=== PATIENT | female | born 1955 | race Hispanic/Latino ===

== ENCOUNTER 2021-04-11 09:00 | Observation (INO) | payer MEDICARE ==
[~2021-04-11] VITALS: Ht 152.4 cm; Wt 82.2 kg
[2021-04-11 11:08] LABS: BASOPHILS % (AUTO) 0.9 % (0.0-5.0); EOSINOPHILS % (AUTO) 2.2 % (0.0-8.0); HEMATOCRIT 38.8 % (36-48); LYMPHOCYTES % (AUTO) 43.5 % (21.0-51.0); MEAN CORPUSCULAR HEMOGLOBIN 30.9 pg (27.0-33.0); MEAN CORPUSCULAR HGB CONC 33.2 g/dL (32.0-36.0); MONOCYTES % (AUTO) 8.4 % (3.0-13.0); NEUTROPHILS % (AUTO) 44.5 % (40.0-77.0); PLATELET COUNT (AUTO) 237 K/uL (130-400); RED BLOOD CELL COUNT(AUTO) 4.17 MIL/uL (4.00-5.50); RED CELL DISTRIBUTION WIDTH 13.1 % (11.0-15.5); WHITE BLOOD COUNT (AUTO) 5.9 K/uL (4.8-10.8)
[2021-04-11 11:10] LABS: APPEARANCE,URINE Clear (CLEAR); BILIRUBIN,URINE Negative (NEGATIVE); COLOR,URINE Yellow (YELLOW); GLUCOSE, URINE (UA) Negative (NEGATIVE); KETONES,URINE Negative (NEGATIVE); LEUKOCYTE ESTERASE ,URINE Moderate (NEGATIVE); NITRATE,URINE Positive (NEGATIVE); OCCULT BLOOD,URINE Negative (NEGATIVE); PH,URINE 5.5 (5.0-8.0); PROTEIN,URINE Negative (NEGATIVE)
[2021-04-11 11:17] LABS: POTASSIUM 4.3 mmol/L (3.5-5.1)
[2021-04-11 11:49] LABS: BACTERIA,URINE Many /HPF (None Seen)
[2021-04-11 11:50] LABS: RBC,URINE 0-1 /HPF (0-1)
[2021-04-11 12:22] LABS: INR 1.07 (0.85-1.15); PROTHROMBIN TIME 11.6 SEC (9.6-11.6)
[2021-04-15] MEDS ORDERED: LOSA100T58 PO (15:35)
[2021-04-15] MEDS ORDERED: ERGO500093 PO (15:35)
[2021-04-15] MEDS ORDERED: FENO145T26 PO (15:35)
[2021-04-15] MEDS ORDERED: METO-391 PO (15:35)
[2021-04-15] MEDS ORDERED: LEVO25CA4 PO (15:35)
[2021-04-15] MEDS ORDERED: OMEP20TA25 PO (15:35)
[2021-04-16] VITALS (20 sets, daily range): BP systolic 129–177; BP diastolic 62–85
[2021-04-16] MEDS ORDERED: LACTATED RINGERS 1000ML 1,000 ML IV ONE (09:30)
[2021-04-16] MEDS: CEFAZOLIN SODIUM 1 GM VIAL IVP ONE ×2 (10:14→12:50)
[2021-04-16] MEDS: CEFAZOLIN SODIUM 1 GM VIAL ONE ×2 (10:14→14:28)
[2021-04-16] MEDS ORDERED: 0.9%NACL 1000ML 1,000 ML IV ONE (10:17)
[2021-04-16] MEDS ORDERED: CEFAZOLIN SODIUM 1 GM VIAL ONE ×3 (11:36→12:59)
[2021-04-16] MEDS ORDERED: TRANEXAMIC ACID 1000MG/10ML ONE ×2 (11:36→15:10)
[2021-04-16] MEDS ORDERED: GLYCOPYRROLATE 1 MG/5 ML SYRINGE ONE (12:09)
[2021-04-16] MEDS ORDERED: ONDANSETRON 4MG INJ ONE (12:09)
[2021-04-16] MEDS ORDERED: DEXAMETHASONE SOD PHOSPHATE 10MG/ML 1ML VIAL ONE (12:09)
[2021-04-16] MEDS ORDERED: FENTANYL CITRATE PF 50 MCG/1 ML 2ML VIAL ONE ×2 (12:09→14:11)
[2021-04-16] MEDS ORDERED: SUCCINYLCHOLINE CHLORIDE 20 MG/ML 10 ML VIAL ONE (12:09)
[2021-04-16] MEDS ORDERED: LIDOCAINE PF 100MG/5ML (2%) SYRINGE 5ML ONE (12:09)
[2021-04-16] MEDS ORDERED: PROPOFOL 10 MG/ML 20ML VIAL IV ONE (12:09)
[2021-04-16] MEDS ORDERED: ROCURONIUM 10MG/1ML SYR 10 MG/ML ML ONE ×2 (12:10→13:24)
[2021-04-16] MEDS ORDERED: NEOSTIGMINE 5MG/5ML SYR IV ONE (12:10)
[2021-04-16] MEDS ORDERED: MIDAZOLAM HCL 1 MG/ML 2ML VIAL ONE (12:10)
[2021-04-16] MEDS ORDERED: MEPERIDINE-PF 25 MG/ML SYG ONE ×2 (12:11→15:23)
[2021-04-16] MEDS ORDERED: ROPIVACAINE 0.5% 5MG/ML 30ML IJ ONE (12:14)
[2021-04-16] MEDS ORDERED: PHENYLEPHRINE HCL 10 MG/ML 1ML VIAL IV ONE (12:54)
[2021-04-16] MEDS ORDERED: LIDOCAINE HCL-MPF 1% 2ML VIAL IV PRN (14:45)
[2021-04-16] MEDS ORDERED: ONDANSETRON 4MG INJ IVP PRN (14:45)
[2021-04-16] MEDS: ACETAMINOPHEN 500 MG TABLET PO SCH ×2 (14:45→20:06)
[2021-04-16] MEDS ORDERED: DiphenhydrAMINE HCL 50 MG/ML VIAL IVP PRN (14:45)
[2021-04-16] MEDS ORDERED: TRAMADOL HCL 50 MG TABLET PO PRN (14:45)
[2021-04-16] MEDS ORDERED: POTASSIUM CHLORIDE 20MEQ/100ML 100 ML IV PRN (14:45)
[2021-04-16] MEDS ORDERED: KCL 20 MEQ ERTAB PO PRN (14:45)
[2021-04-16] MEDS ORDERED: POTASSIUM CHLORIDE 10% ELIXIR 20 MEQ/15 ML UDCUP PO PRN (14:45)
[2021-04-16] MEDS ORDERED: OXYCODONE HCL 5 MG TAB PO PRN (14:45)
[2021-04-16] MEDS ORDERED: TEMAZEPAM 15 MG CAPSULE PO PRN (14:45)
[2021-04-16] MEDS ORDERED: CALCIUM CARB 500MG PO PRN (14:45)
[2021-04-16] MEDS ORDERED: FERROUS FUMARATE 324 MG TABLET PO PRN (14:45)
[2021-04-16] MEDS: INSULIN HUMULIN R 100 UNIT/ML 3ML SQ SCH ×2 (16:30→21:00)
[2021-04-16] MEDS: 0.9%NACL 1000ML 1,000 ML IV SCH (17:24)
[2021-04-16] MEDS: KETOROLAC 15MG/ML VIAL (15MG/ML) IV PRN (17:24)
[2021-04-16] MEDS: CELECOXIB 200 MG CAP PO SCH (20:05)
[2021-04-16] MEDS: ASPIRIN 81MG CHEW TAB PO SCH (20:05)
[2021-04-16] MEDS: PREGABALIN 25 MG CAP PO SCH (20:05)
[2021-04-16] MEDS: CEFAZOLIN SODIUM 1 GM VIAL IVP SCH (20:07)
[2021-04-16] MEDS: METOPROLOL SUCCINATE 50 MG TAB.SR.24H PO SCH (20:12)
[2021-04-17] VITALS: BP 164/79
[2021-04-17] MEDS: 0.9%NACL 1000ML 1,000 ML IV SCH ×2 (00:08→09:24)
[2021-04-17] MEDS: CEFAZOLIN SODIUM 1 GM VIAL IVP SCH (02:50)
[2021-04-17 04:40] VITALS: BP 137/61
[2021-04-17 05:14] LABS: MEAN CORPUSCULAR HEMOGLOBIN 30.8 pg (27.0-33.0); MEAN CORPUSCULAR HGB CONC 32.6 g/dL (32.0-36.0); MEAN CORPUSCULAR VOLUME 94.4 fL (79-99); RED BLOOD CELL COUNT(AUTO) 3.6 MIL/uL (4.00-5.50); RED CELL DISTRIBUTION WIDTH 13.1 % (11.0-15.5); WHITE BLOOD COUNT (AUTO) 10.1 K/uL (4.8-10.8)
[2021-04-17 05:26] LABS: CREATININE 1.1 mg/dL (0.5-1.5); POTASSIUM 4.2 mmol/L (3.5-5.1)
[2021-04-17] MEDS: INSULIN HUMULIN R 100 UNIT/ML 3ML SQ SCH ×4 (06:06→21:00)
[2021-04-17] MEDS: LEVOTHYROXINE 25 MCG TABLET PO SCH (06:18)
[2021-04-17] MEDS: ACETAMINOPHEN 500 MG TABLET PO SCH ×3 (06:18→19:45)
[2021-04-17 08:05] VITALS: BP 150/70
[2021-04-17] MEDS ORDERED: LEVOFLOXACIN 500 MG TABLET PO SCH (09:00)
[2021-04-17] MEDS: PREGABALIN 25 MG CAP PO SCH ×2 (09:22→19:44)
[2021-04-17] MEDS: FENOFIBRATE NANOCRYSTALLIZED 145 MG TAB PO SCH (09:22)
[2021-04-17] MEDS: METOPROLOL SUCCINATE 50 MG TAB.SR.24H PO SCH ×2 (09:23→19:44)
[2021-04-17] MEDS: CELECOXIB 200 MG CAP PO SCH ×2 (09:23→19:44)
[2021-04-17] MEDS: POLYETHYLENE GLYCOL 3350 17 GM POWD.PACK PO SCH (09:23)
[2021-04-17] MEDS: ASPIRIN 81MG CHEW TAB PO SCH ×2 (09:23→19:44)
[2021-04-17] MEDS: LOSARTAN 100 MG TABLET PO SCH (09:23)
[2021-04-17] MEDS: LEVOFLOXACIN 500 MG TABLET PO SCH (09:23)
[2021-04-17] MEDS: KETOROLAC 15MG/ML VIAL (15MG/ML) IV PRN (09:25)
[2021-04-17] MEDS: PANTOPRAZOLE 40 MG TAB DR PO SCH (11:53)
[2021-04-17 12:00] VITALS: BP 134/55
[2021-04-17] MEDS: OXYCODONE HCL 5 MG TAB PO PRN (14:12)
[2021-04-17 16:00] VITALS: BP 130/53
[2021-04-17 19:55] VITALS: BP 139/63
[2021-04-18 00:10] VITALS: BP 128/49
[2021-04-18 04:29] VITALS: BP 139/57
[2021-04-18] MEDS: LEVOTHYROXINE 25 MCG TABLET PO SCH (05:58)
[2021-04-18] MEDS: ACETAMINOPHEN 500 MG TABLET PO SCH ×2 (05:59→14:45)
[2021-04-18] MEDS: INSULIN HUMULIN R 100 UNIT/ML 3ML SQ SCH ×3 (06:09→16:30)
[2021-04-18] MEDS: ASPIRIN 81MG CHEW TAB PO SCH (07:43)
[2021-04-18] MEDS: OXYCODONE HCL 5 MG TAB PO PRN (07:43)
[2021-04-18] MEDS: PREGABALIN 25 MG CAP PO SCH (07:43)
[2021-04-18] MEDS: METOPROLOL SUCCINATE 50 MG TAB.SR.24H PO SCH (07:43)
[2021-04-18] MEDS: FENOFIBRATE NANOCRYSTALLIZED 145 MG TAB PO SCH (07:43)
[2021-04-18] MEDS: LEVOFLOXACIN 500 MG TABLET PO SCH (07:43)
[2021-04-18] MEDS: LOSARTAN 100 MG TABLET PO SCH (07:43)
[2021-04-18] MEDS: POLYETHYLENE GLYCOL 3350 17 GM POWD.PACK PO SCH (07:44)
[2021-04-18] MEDS: CELECOXIB 200 MG CAP PO SCH (07:44)
[2021-04-18 08:18] VITALS: BP 138/60
[2021-04-18] MEDS ORDERED: LEVOFLOXACIN 500 MG TABLET PO SCH (09:00)
[2021-04-18 11:26] VITALS: BP 154/59
[2021-04-18] MEDS: PANTOPRAZOLE 40 MG TAB DR PO SCH (15:32)
[2021-04-18 17:22] VITALS: BP 152/62
[2021-04-18] MEDS ORDERED: ASPI-1005 PO (17:51)
[2021-04-18] MEDS ORDERED: LEVO500T89 PO (17:51)
[2021-04-18] MEDS ORDERED: HYDR-4060 PO ×2 (17:51→18:25)
[2021-04-19] MEDS ORDERED: BISACODYL 10 MG SUPP.RECT RC PRN (14:45)
[2021-04-23] MEDS ORDERED: ERGOCALCIFEROL (VITAMIN D2) 50,000 UNIT CAPSULE PO SCH (09:00)
== END 2021-04-18 18:46 | disposition home health service (06) ==
LOC: EDSTATUS 09:00 → DAHIP 04-16 09:20 → 4BH 04-16 16:42
PROVIDERS: ADMIT Orthopaedic Surgery; ATTEND Orthopaedic Surgery
DX: M17.12 Unilateral primary osteoarthritis, left knee (principal); I10 Essential (primary) hypertension; E03.9 Hypothyroidism, unspecified; N39.0 Urinary tract infection, site not specified; B96.1 Klebsiella pneumoniae [K. pneumoniae] as the cause of diseases classified elsewhere; Z82.49 Family history of ischemic heart disease and other diseases of the circulatory system; Z83.3 Family history of diabetes mellitus
CPT/HCPCS: 27447; 36415 ×2; 80048 ×2; 81001; 82948 ×9; 85025; 85027; 85610; 87077; 87088; 87186; 87635; 87641; 88305; 88311; 96361 ×2; 96374; 96375; 96376; 97039 ×4; 97116 ×4; 97161; 97530 ×4; A4215; A4221; A4222; A4223 ×2; A4649 ×3; A4663; A4930; A5120; A9272; C1776; G0378 ×52; G8978; G8979; G8980; G8981; G8982; G8983; J0330; J0690 ×6; J1100; J1885 ×2; J2001; J2175 ×2; J2250; J2370; J2405; J2704; J2710; J2795; J3010 ×2; J3490 ×3; J7030; J7120 ×2

== ENCOUNTER → 2023-08-12 | Outpatient (CLI) | payer MEDICARE ==
[~2023-08-12] MED LIST: ASPI-1005 PO; ERGO500093 PO; FENO145T26 PO; HYDR-4060 PO; LEVO-70 PO; LEVO25CA4 PO; LOSA100T59 PO; METO-391 PO; OMEP20TA20 PO
[2023-08-12 16:20] LABS: CREATININE 0.9 mg/dL (0.5-1.5); POTASSIUM 4.3 mmol/L (3.5-5.1)
== END | disposition home or self-care (01) ==
LOC: LAB 15:41
PROVIDERS: ATTEND Internal Medicine Cardiovascular Disease
DX: I10 Essential (primary) hypertension (principal)
CPT/HCPCS: 36415; 80048

== ENCOUNTER → 2023-10-07 | Outpatient (CLI) | payer MEDICARE | END | disposition home or self-care (01) | LOC: SHCH 11:16 | PROVIDERS: ATTEND Internal Medicine Cardiovascular Disease | DX: I10 Essential (primary) hypertension (principal) | CPT/HCPCS: 93306 ==

== ENCOUNTER → 2024-11-08 | Outpatient (CLI) | payer MEDICARE ==
--- NOTE | 2024-11-08 14:05 | HMCIMG ---
CHEST 2VWS REASON: HTN COMPARISON: None FINDINGS: Two views of the chest were obtained. Lungs are clear. Heart size is normal. There is no pulmonary vascular congestion. Mediastinum and bony thorax appear unremarkable. IMPRESSION: Normal two view chest x-ray.
== END | disposition home or self-care (01) ==
LOC: RAH 11:25
PROVIDERS: ATTEND Family Medicine
DX: Z01.818 Encounter for other preprocedural examination (principal); I10 Essential (primary) hypertension
CPT/HCPCS: 71046

== ENCOUNTER → 2024-11-21 | Outpatient (CLI) | payer MEDICARE ==
[~2024-11-21] MED LIST changes: +AEC81 PO; +AMLO-257 PO; +LABE100T7 PO; +NITR0.4T50 SL; +SPIR25TA6 PO; +TELM80TA10 PO
[2024-11-21] MEDS: REGADENOSON 0.4 MG/5 ML PF SYG IVP ONE (11:24)
--- NOTE | 2024-11-22 09:30 | HMCSR ---
APPROVED REPORT Height: 5 ft 0in Weight: 177 lbs TEST INDICATIONS Hypertension/HDD The imaging protocol used to acquire images was Rest Tc-99m/stress Tc-99m 1 day Consent: The procedure was explained and understood by the patient. Informerd consent was witnessed Gaby ROMAN RN First, low dose rest was performed then high dose stress. RESTING DATA: The resting ekg shows: NSR Rest SPECT myocardial perfusion imaging was performed in supine position 83 minutes following the int ravenous injection of 13.0 mCi of Tc-99 Sestamibi. Time of rest injection: 09:22: Date: 11/21/2024 Time of rest imagin:45: Date: 11/21/2024 PHARMACOLOGIC STRESS: Pharmacologic stress test was performed by injecting regadenoson 0.4 mg IV push followed by the intra venous injection of 30.0 mCi of Tc-99 Sestamibi. Time of stress injection: 11:14: Date: 11/21/2024 Time of stress imagin:34: Date: 11/21/2024 Heart Rate at time of stress injection: 67 bpm. Gated Stress SPECT was performed 80 minutes after stress injection. The images were gated to evaluate regional wall motion and calculate left ventricular ejection fracti on. STRESS DETAILS Reason for Termination: Infusion complete Stress Symptoms: Dyspnea Max HR Achieved: 96 bpm % of APMHR Achieved: 65 Max Blood Pressure: 174/74 mmHg Stress ECG: NSR Study quality was excellent. Lung uptake was Normal. Artifact: No artifact LEFT VENTRICLE Size: The left ventricular size is normal. Systolic Function:The left ventricular systolic function is normal. Wall Motion: No regional wall motion abnormalities noted. The left ventricular ejection fraction was calculated to be 70%.TID = 1.00. LV PERFUSION The rest and stress images show normal perfusion. RV Size/Shape Normal RV Conclusion Normal cardiolyte, low risk for ischemic events.
== END | disposition home or self-care (01) ==
LOC: SHCH 08:41
PROVIDERS: ATTEND Internal Medicine Cardiovascular Disease
DX: R06.00 Dyspnea, unspecified (principal); I10 Essential (primary) hypertension; Z91.89 Other specified personal risk factors, not elsewhere classified; Z79.899 Other long term (current) drug therapy
CPT/HCPCS: 78452; 93017; J2785; A9500 ×2

== ENCOUNTER 2024-11-28 11:43 | Observation (INO) | payer MEDICARE ==
[2024-11-23 14:26] LABS: BASOPHILS # (AUTO) 0.04 K/uL (0.00-0.20); BASOPHILS % (AUTO) 0.7 % (0.0-5.0); EOSINOPHILS # (AUTO) 0.18 K/uL (0.00-0.70); HEMATOCRIT 33.8 % (36-48); IMMATURE GRANULOCYTE ABSOLUTE 0.03 K/uL (0-1); LYMPHOCYTES # (AUTO) 2.3 K/uL (1.0-4.8); LYMPHOCYTES % (AUTO) 37.7 % (21.0-51.0); MEAN CORPUSCULAR HEMOGLOBIN 31.4 pg (27.0-33.0); MEAN CORPUSCULAR HGB CONC 33.7 g/dL (32.0-36.0); MEAN CORPUSCULAR VOLUME 93.1 fL (79-99); MONOCYTES # (AUTO) 0.6 K/uL (0.1-1.0); MONOCYTES % (AUTO) 9.7 % (3.0-13.0); NEUTROPHILS # (AUTO) 2.9 K/uL (1.8-7.7); NEUTROPHILS % (AUTO) 48.4 % (40.0-77.0); PLATELET COUNT (AUTO) 249 K/uL (130-400); RED BLOOD CELL COUNT(AUTO) 3.63 MIL/uL (4.00-5.50); RED CELL DISTRIBUTION WIDTH 13.2 % (11.0-15.5); WHITE BLOOD COUNT (AUTO) 6.1 K/uL (4.8-10.8)
[2024-11-23 14:29] LABS: APPEARANCE,URINE CLEAR (CLEAR); BILIRUBIN,URINE NEGATIVE (NEGATIVE); COLOR,URINE COLORLESS (YELLOW); GLUCOSE, URINE (UA) NEGATIVE (NEGATIVE); KETONES,URINE NEGATIVE (NEGATIVE); LEUKOCYTE ESTERASE ,URINE 250 Leu/uL (NEGATIVE); NITRATE,URINE NEGATIVE (NEGATIVE); OCCULT BLOOD,URINE NEGATIVE (NEGATIVE); PH,URINE 6.5 (5.0-8.0); PROTEIN,URINE NEGATIVE (NEGATIVE); UROBILINOGEN,URINE 0.2 mg/dL (0.2-1.0)
[2024-11-23 14:30] LABS: ADD UA MICROSCOPIC YES
[2024-11-23 14:32] LABS: BACTERIA,URINE RARE /HPF (None Seen); MUCUS,URINE RARE LPF (None Seen); RBC,URINE 0-1 /HPF (0-1)
[2024-11-23 14:59] VITALS: BP 143/71; PULSE 79; RESP 18; TEMP 97.9
--- NOTE | 2024-11-27 09:49 | NUR ---
RE: LABS REPORTED URINE CX/SENSITIVITIES TO DR EDMOND, NO NEW ORDERS RECEIVED.
[2024-11-28] VITALS (23 sets, daily range): BP systolic 109–159; BP diastolic 56–78; PULSE 70–89; RESP 12–19; TEMP 97–98
[~2024-11-28] VITALS: Ht 152.4 cm; Wt 79.4 kg
[~2024-11-28 11:43] MED LIST changes: -AEC81 PO
[2024-11-28] MEDS ORDERED: TRANEXAMIC ACID 1000MG/10ML ONE (12:55)
[2024-11-28] MEDS ORDERED: VANCOMYCIN 500MG+NS 100ML 100 ML IV ONE (12:56)
[2024-11-28] MEDS ORDERED: GLYCOPYRROLATE 0.2 MG/ML 5 ML VIAL ONE (12:58)
[2024-11-28] MEDS ORDERED: proPOFol 10 MG/ML 20ML VIAL IV ONE (12:58)
[2024-11-28] MEDS ORDERED: LIDOCAINE PF 100MG/5ML (2%) SYRINGE 5ML ONE (12:58)
[2024-11-28] MEDS ORDERED: dexaMETHasone SOD PHOSPHATE 10MG/ML 1ML VIAL ONE (12:58)
[2024-11-28] MEDS ORDERED: ondanSETRON 4MG INJ ONE (12:58)
[2024-11-28] MEDS ORDERED: SUCCINYLCHOLINE CHLORIDE 20 MG/ML 10 ML VIAL ONE (12:58)
[2024-11-28] MEDS ORDERED: NEOSTIGMINE METHYLSULFATE 1MG/ML IV ONE (12:58)
[2024-11-28] MEDS ORDERED: rocuRONium bROMide 10MG/1ML 5ML VL ONE (12:59)
[2024-11-28] MEDS ORDERED: FENTanyl CITRate PF 50 MCG/1 ML 2ML VIAL ONE ×3 (13:00→16:24)
[2024-11-28] MEDS ORDERED: MIDAZOLAM HCL 1 MG/ML 2ML VIAL ONE (13:00)
[2024-11-28] MEDS: ceFAZolin SODIUM 2 GM VIAL ONE (13:07)
[2024-11-28] MEDS: 0.9%NACL 1000ML 1,000 ML IV ONE (13:07)
[2024-11-28] MEDS: ceFAZolin SODIUM 1 GM VIAL ONE (15:25)
[2024-11-28] MEDS: VANCOMYCIN 500MG VIAL IJ ONE (15:25)
[2024-11-28] MEDS ORDERED: PoTASSium chloRIDE 20MEQ ER 20 MEQ ERTAB PO PRN (17:00)
[2024-11-28] MEDS ORDERED: FERROUS FUMARATE 324 MG TABLET PO PRN (17:00)
[2024-11-28] MEDS ORDERED: CALCIUM CARB 500MG PO PRN (17:00)
[2024-11-28] MEDS ORDERED: ondanSETRON 4MG INJ IVP PRN (17:00)
[2024-11-28] MEDS ORDERED: PoTASSium chl 10% ELIXIR 20MEQ 20 MEQ/15 ML UDCUP PO PRN (17:00)
[2024-11-28] MEDS ORDERED: PoTASSium chloRIDE 20MEQ/100ML 100 ML IV PRN (17:00)
[2024-11-28] MEDS ORDERED: DiphenhydrAMINE HCL 50 MG/ML VIAL IVP PRN (17:00)
[2024-11-28] MEDS ORDERED: HYDROcodone/APAP 5/325 1 TAB TABLET PO PRN (17:00)
[2024-11-28] MEDS ORDERED: TEMAZepam 15 MG CAPSULE PO PRN (17:00)
--- NOTE | 2024-11-28 17:06 | OP ---
Operative Note: DATE OF PROCEDURE: 11/28/24 SURGEON: TAMAR EDMOND MD SUPPLY CHAIN SYSTEMS MANAGER: [Matilde Samuel CFA] ANESTHESIA: [General anesthesia plus regional block] ANESTHESIOLOGIST/ALLEY WORKER: [Shon nguyen CRNA] PREOPERATIVE DIAGNOSIS: [Right knee osteoarthritis] POSTOPERATIVE DIAGNOSIS: [Same] IMPLANTS: [Biomet vanguard. Femur size 62.5 right PS. Tibia size 67 fixed cruciate. Tibial liner size 10 by 63/67 PS patella size 31 by eight, asymmetric] PROCEDURE: [Knee arthroplasty] ESTIMATED BLOOD LOSS: [150 mL] INDICATIONS: [Patient is a 69-year-old female with history of chronic osteoarthritis that has been treated conservatively in the longer responded to treatment. The patient was admitted for a right total knee arthroplasty. Procedure understood, risks, benefits and possible complications and she agreed to sign the consent form.] DESCRIPTION OF PROCEDURE: [After adequate general anesthesia was achieved and regional block obtained the right lower extremity was prepped and draped in the usual manner previous placement of the tourniquet in the proximal thigh. The extremity was then elevated and exsanguinated with an Esmarch bandage and the tourniquet inflated to 250 mmHg the Esmarch band been then removed. With the knee in flexion a longitudinal incision was then made in the anterior aspect through the skin followed by dissection of the subcutaneous tissue. A bone infusion needle was then inserted just medial to the tibial tuberosity that we proceeded to inject a solution consisting of 50 mL normal saline with 500 mg of vancomycin. The bone needle was then removed. A paramedian approach was then made with the Bovie cautery cutting through the quadriceps tendon, medial patellar retinaculum and patellar tendon retinaculum. The retropatellar tendon fat was then excised and the soft tissue elements of the tibia were elevated subperiosteally and retractors were applied medially and laterally . The anterior and posterior cruciate ligaments were resected. With the use of a drill a starting hole was made in the distal femur entering the intramedullary canal and then after removal of the drill an intramedullary guide was inserted with a 5 degree valgus block that touched the distal femur and to this the distal femoral cutting guide was then applied anteriorly and was secured to the distal femur with the use of pins. The intramedullary guide was then removed and with the use of the oscillating saw we proceeded to resect the distal femur removing the fragments and the guide. The femoral sizer was then applied distally and drill holes were made removing the sizer and the 4-in-1 cutting block was then inserted and the anterior, posterior and chamfer cuts were made removing the fragments and the block. The posterior cruciate ligament retractor was then inserted posterior to the tibia and this was brought forward proceeding then to apply the external tibial alignment guide and secured the proximal cutting guide to the tibia with the use of pins. With the use of the oscillating saw the proximal cut to the tibia tibia was made. The bone fragment was removed and the trial tibia plate was chosen. At this point the menisci were removed sharply and with the use of the curved osteotome the posterior osteophytes of the femur were removed. The PS cutting guide was then inserted and the intercondylar cut was made removing the fragment and the guide. The trial components were then inserted at the femur and tibia with a trial tibial liner bringing the knee into extension noticing that the patient had a very stable knee in flexion, extension and with valgus and varus stress. The knee was maintained in extension and the patella was then addressed proceeding to measure its thickness and then with the use of the oscillating saw we removed eight mm from the articular surface and restored the height with application of a trial component after 3 peg holes were made. The patellofemoral ligament was removed and then the patellofemoral tracking was checked noticing to be normal. At this moment all the components were removed, the tibia after the metaphyseal defect was created and while cement was being mixed on the back table we pro ceeded to irrigate the joint with antibiotic solution and then cover the entry to the femoral canal with a bone plug. Once the cement was ready we proceeded to apply it first to the tibia surface inserting the final component and then to the femoral surface and inserted the final component removing the excess cement and then applying a trial liner bringing the knee into extension for compression. Then we proceeded to irrigate the patella surface and dried it applying then bone cement and the final patellar component was inserted and was secured with application of a clamp. The joint was irrigated with a warm diluted Betadine solution while the cement dried followed by irrigation with antibiotic solution. The tourniquet was then deflated and this was followed by hemostasis. The trial liner was removed as well as the patellar clamp and we proceeded then to irrigate the posterior aspect of the joint to remove all the remaining debris and then we proceeded to irrigate the joint with a solution of Xperience. We proceeded to removal of the fluid from the joint and then the final tibial liner was inserted and locked against the tibia. The range of motion was checked and noticed to be adequate with full extension and flexion, no laxity in valgus or varus stress and with adequate patellofemoral tracking. The patient had no anterior or posterior drawer. The wound was then closed with approximation of the quadriceps tendon, patellar retinaculum and patellar tendon retinaculum with #1 Vicryl close stitches alternating with #1 Ethibond stitches and closure of the subcutaneous tissue with 2-0 Monocryl inverted stitches and the skin was closed with 3-0 Monocryl subcuticularly. The wound was covered with a suction dressing followed by application of an Ray bandage for compression and the drapes were then removed transferring the patient to the hospital bed and taken to recovery room for follow-up by anesthesia. There were no complications during the procedure.] TAMAR EDMOND MD Nov 28, 2024 17:06
[2024-11-28] MEDS: acetaMINOPHEN 100 ML ONE (18:27)
[2024-11-28] MEDS ORDERED: NITROGLYCERIN 0.4 MG SL TAB SL PRN (20:00)
[2024-11-28] MEDS: CeleCOXib 200 MG CAP PO SCH (20:08)
[2024-11-28] MEDS: ASPIRIN 81 MG EC TAB PO SCH (20:08)
[2024-11-28] MEDS: doCUSate SODIUM 100 MG CAP PO SCH (20:08)
[2024-11-28] MEDS: traMADol HCL 50 MG TABLET PO PRN (20:08)
[2024-11-28] MEDS: acetaMINOPHEN 500 MG TABLET PO SCH (20:10)
[2024-11-28] MEDS: INSULIN humuLIN R 100 UNIT/ML 3ML SQ SCH (20:12)
[2024-11-28] MEDS: 0.9%NACL 1000ML 1,000 ML IV SCH (20:12)
[2024-11-28] MEDS: LAbetaLOL HCL 100 MG TABLET PO SCH (20:50)
--- NOTE | 2024-11-28 21:00 | NUR ---
Attempted to instruct patient on IS but patient stated she was in pain and did not want to perform IS.
[2024-11-28] MEDS: ceFAZolin SODIUM 2 GM VIAL IVP SCH (22:21)
[2024-11-29] VITALS (11 sets, daily range): BP systolic 125–162; BP diastolic 45–90; PULSE 72–96; RESP 16–19; TEMP 97.2–98.5; O2SAT 95–100
[2024-11-29 05:40] LABS: HEMATOCRIT 31.1 % (36-48); MEAN CORPUSCULAR HEMOGLOBIN 31.2 pg (27.0-33.0); MEAN CORPUSCULAR HGB CONC 33.8 g/dL (32.0-36.0); MEAN CORPUSCULAR VOLUME 92.3 fL (79-99); RED BLOOD CELL COUNT(AUTO) 3.37 MIL/uL (4.00-5.50); RED CELL DISTRIBUTION WIDTH 12.8 % (11.0-15.5); WHITE BLOOD COUNT (AUTO) 10.6 K/uL (4.8-10.8)
[2024-11-29 05:49] LABS: POTASSIUM 4.1 mmol/L (3.5-5.1)
[2024-11-29] MEDS: levoTHYROxine 25 MCG TABLET PO SCH (06:12)
[2024-11-29] MEDS: SPIRONOLACTONE 25 MG TAB PO SCH (08:00)
--- NOTE | 2024-11-29 08:11 | PN ---
Ortho postop day one. This morning patient is still in bed but resting comfortably she is awake alert oriented. Reporting well managed pain control. Vital signs have been stable. Afebrile. Laboratory results reviewed. Noted to have a drop in hemoglobin and hematocrit as expected after right total knee arthroplasty. Patient is currently asymptomatic and we will address per protocol as necessary. She is voiding on her own and passing gas but no BM yet. Ray bandage is removed and the PICCO dressing is intact and plasty green. Gastrocnemius soft nontender. Negative Homans. Range of motion not assessed on this encounter. Patient was done late therefore therapy was not initiated. Pending physical therapy this morning. Operative findings discussed with the patient. Patient is anticipated to go home with a home health/PT. Assessment: Status post right total knee arthroplasty. Asymptomatic acute postoperative blood loss anemia. Plan: Continue with Dr. Carbajal TKA protocol and discharge planning Asymptomatic acute postoperative blood loss anemia addressed with protocol as necessary Vitals/Labs Vital Signs Date Time Temp Pulse Resp B/P (MAP) Pulse Ox O2 Delivery O2 Flow Rate FiO2 11/29/24 06:32 90 18 N/Cannula Low lpm 2.0 28 11/29/24 04:00 98.4 162/69 96 Laboratory Tests 11/29/24 05:24 Medications Current Medications Cefazolin Sodium 2 gm STK-MED ONCE .ROUTE; Start 11/28/24 at 12:33; Stop 11/28/24 at 12:33; Status DC Sodium Chloride 1,000 ml @ As Directed STK-MED ONCE IV Last administered on 11/28/24at 13:07; Start 11/28/24 at 12:33; Stop 11/28/24 at 12:34; Status DC Tranexamic Acid 1,000 mg STK-MED ONCE .ROUTE; Start 11/28/24 at 12:55; Stop 11/28/24 at 12:59; Status DC Cefazolin Sodium 1 gm STK-MED ONCE .ROUTE Last administered on 11/28/24at 15:25; Start 11/28/24 at 12:55; Stop 11/28/24 at 12:59; Status DC Vancomycin HCl 100 ml @ As Directed STK-MED ONCE IV; Start 11/28/24 at 12:56; Stop 11/28/24 at 12:59; Status DC Lidocaine HCl 100 mg STK-MED ONCE .ROUTE; Start 11/28/24 at 12:58; Stop 11/28/24 at 12:59; Status DC Succinylcholine Chloride 200 mg STK-MED ONCE .ROUTE; Start 11/28/24 at 12:58; Stop 11/28/24 at 12:59; Status DC Dexamethasone Sodium Phosphate 10 mg STK-MED ONCE .ROUTE; Start 11/28/24 at 12:58; Stop 11/28/24 at 12:59; Status DC Glycopyrrolate 1 mg STK-MED ONCE .ROUTE; Start 11/28/24 at 12:58; Stop 11/28/24 at 12:59; Status DC Propofol 200 mg STK-MED ONCE IV; Start 11/28/24 at 12:58; Stop 11/28/24 at 12:59; Status DC Neostigmine Methylsulfate 10 mg STK-MED ONCE IV; Start 11/28/24 at 12:58; Stop 11/28/24 at 12:59; Status DC Ondansetron HCl 4 mg STK-MED ONCE .ROUTE; Start 11/28/24 at 12:58; Stop 11/28/24 at 12:59; Status DC Rocuronium Trappe 50 mg STK-MED ONCE .ROUTE; Start 11/28/24 at 12:59; Stop 11/28/24 at 12:59; Status DC Fentanyl Citrate 100 mcg STK-MED ONCE .ROUTE; Start 11/28/24 at 13:00; Stop 11/28/24 at 13:00; Status DC Midazolam HCl 2 mg STK-MED ONCE .ROUTE; Start 11/28/24 at 13:00; Stop 11/28/24 at 13:01; Status DC Fentanyl Citrate 100 mcg STK-MED ONCE .ROUTE; Start 11/28/24 at 15:19; Stop 11/28/24 at 15:20; Status DC Vancomycin HCl 500 mg STK-MED ONCE IJ Last administered on 11/28/24at 15:25; Start 11/28/24 at 15:25; Stop 11/28/24 at 16:05; Status DC Fentanyl Citrate 100 mcg STK-MED ONCE .ROUTE; Start 11/28/24 at 16:24; Stop 11/28/24 at 16:24; Status DC Sodium Chloride 1,000 ml @ 100 mls/hr Q10H IV Last administered on 11/28/24at 20:12; Start 11/28/24 at 17:00; Stop 11/29/24 at 16:59 Polyethylene Glycol 17 gm DAILY PO; Start 11/29/24 at 09:00; Stop 12/29/24 at 08:59 Bisacodyl 10 mg DAILY PRN RC; Start 12/01/24 at 17:00; Stop 12/31/24 at 16:59 Ketorolac Tromethamine 15 mg Q6H PRN IV; Start 11/28/24 at 17:00; Stop 12/03/24 at 16:59 Ferrous Fumarate 324 mg DAILY PRN PO; Start 11/28/24 at 17:00; Stop 12/28/24 at 16:59 Temazepam 15 mg HS PRN PO; Start 11/28/24 at 17:00; Stop 12/28/24 at 16:59 Ondansetron HCl 4 mg Q6H PRN IVP; Start 11/28/24 at 17:00; Stop 12/28/24 at 16:59 Calcium Carbonate 500 mg Q12H PRN PO; Start 11/28/24 at 17:00; Stop 12/28/24 at 16:59 Diphenhydramine HCl 25 mg Q6H PRN IVP; Start 11/28/24 at 17:00; Stop 12/28/24 at 16:59 Insulin Human Regular INSULIN SLIDING SCAL... ACHS SQ; Start 11/28/24 at 21:00; Stop 12/28/24 at 20:59 Cefazolin Sodium 2 gm Q8H IVP Last administered on 11/29/24at 06:11; Start 11/28/24 at 22:00; Stop 11/29/24 at 06:01; Status DC Docusate Sodium 100 mg BID PO Last administered on 11/28/24at 20:08; Start 11/28/24 at 21:00; Stop 12/28/24 at 20:59 Potassium Chloride 100 ml @ 100 mls/hr AD PRN IV; Start 11/28/24 at 17:00; Stop 12/28/24 at 16:59 Potassium Chloride 20 meq AD PRN PO; Start 11/28/24 at 17:00; Stop 12/28/24 at 16:59 Potassium Chloride 20 meq AD PRN PO; Start 11/28/24 at 17:00; Stop 12/28/24 at 16:59 Celecoxib 200 mg BID PO Last administered on 11/28/24at 20:08; Start 11/28/24 at 21:00; Stop 12/28/24 at 20:59 Tramadol HCl 50 mg Q6H PRN PO Last administered on 11/29/24at 06:20; Start 11/28/24 at 17:00; Stop 12/03/24 at 16:59 Acetaminophen 1,000 mg Q8H PO Last administered on 11/29/24at 00:56; Start 11/28/24 at 17:00; Stop 12/01/24 at 16:59 Acetaminophen/ Hydrocodone Bitart Q4H PRN PO; Start 11/28/24 at 17:00; Stop 12/03/24 at 16:59 Aspirin 81 mg BID PO Last administered on 11/28/24at 20:08; Start 11/28/24 at 21:00; Stop 12/28/24 at 20:59 Acetaminophen 100 ml @ As Directed STK-MED ONCE .ROUTE Last administered on 11/28/24at 18:27; Start 11/28/24 at 18:24; Stop 11/28/24 at 18:25; Status DC Amlodipine Besylate 5 mg DAILY PO; Start 11/29/24 at 09:00; Stop 12/29/24 at 08:59 Fenofibrate 145 mg DAILY PO; Start 11/29/24 at 09:00; Stop 12/29/24 at 08:59 Labetalol HCl 100 mg BID PO Last administered on 11/28/24at 20:50; Start 11/28/24 at 21:00; Stop 12/28/24 at 20:59 Nitroglycerin 0.4 mg AD PRN SL; Start 11/28/24 at 20:00; Stop 12/28/24 at 19:59 Spironolactone 25 mg DAILYBKFST PO; Start 11/29/24 at 08:00; Stop 12/29/24 at 07:59 Levothyroxine Sodium 25 mcg SYN PO Last administered on 11/29/24at 06:12; Start 11/29/24 at 06:30; Stop 12/29/24 at 06:29 Pantoprazole Sodium 40 mg DAILY PO; Start 11/29/24 at 09:00; Stop 12/29/24 at 08:59 Losartan Potassium 100 mg DAILY PO; Start 11/29/24 at 09:00; Stop 12/29/24 at 08:59 MUSA SOLANO NP Nov 29, 2024 08:11
[2024-11-29] MEDS: LoSARTan 100 MG TABLET PO SCH (08:18)
[2024-11-29] MEDS: amLODIPine 5 MG TAB PO SCH (08:18)
[2024-11-29] MEDS: FENOFIBRATE NANOCRYSTALLIZED 145 MG TAB PO SCH (08:21)
[2024-11-29] MEDS: polyETHYLene GLYCol 3350 17 GM POWD.PACK PO SCH (08:21)
[2024-11-29] MEDS: PANTOPrazole 40 MG TAB DR PO SCH (08:22)
--- NOTE | 2024-11-29 10:00 | NUR ---
Patient seen and evaluated. Patient became hot and began to perspire while returning back to her room. Patient was sat down with initial BP at 84/49. Patient was promptly place back in bed in trendelenberg. Repeat vitals were 136/69. Patient left with nurse Hali. PT team to follow. Addendum: 11/29/24 at 1352 by STEVEN UGALDE PT Amended: Links added.
--- NOTE | 2024-11-29 12:54 | NUR ---
DCP-Home Pt awake, alert, oriented x3 lives with spouse Christian Harley [phone]. Pt PCP is Yifan Lara. Pt is independent and anticipates discharge is for Home with Home health. Addendum: 11/29/24 at 1257 by SYDNIE SARMIENTO RN CM Amended: Links added.
--- NOTE | 2024-11-29 14:45 | NUR ---
ORTHO COORDINATOR: TEACHING REGARDING DVT AND PNEUMONIA PREVENTION, PAIN EXPECTATIONS AND PAIN MANAGEMENT. PATIENT UP TO CHAIR. INCENTIVE SPIROMETER ON BEDSIDE TRAY. B SCD SLEEVES AVAILABLE AND MACHINE AT END OF BED. PATIENT REPORTS PERFORMING INCENTIVE SPIROMETER EVERY HOURS SEVERAL TIMES. PATIENT RETURN DEMONSTRATED PROPER FOOT FLEXION AND EXTENSION EXERCISE. SHILPA DRESSING INSTRUCTION SHEET REVIEWED. QUESTIONS ANSWERED. ADDITIONAL SHILPA DRESSING PRESENT IN ROOM. PATIENT DESIRES HOME HEALTH. NUMERIC PAIN SCALE REVIEWED. PATIENT INSTRUCTED SHE WILL NEED TO REQUEST PAIN MEDICATION AND TO PROVIDE A NUMERIC SCORE AND TYPE OF PAIN. PATIENT VERBALIZED UNDERSTANDING. PAIN EXPECTATIONS REVIEWED. INFORMED PATIENT PAIN MEDICATIONS WERE AVAILABLE ACROSS THE ENTIRE PAIN SCALE FROM 1-10. PATIENT VERBALIZED UNDERSTANDING. PATIENT INSTRUCTED TO CONTINUE PRE-MEDICATING PRIOR TO PHYSICAL THERAPY AND PERIODS OF HIGH ACTIVITY ONCE DISCHARGED TO HOME. PATIENT VERBALIZED UNDERSTANDING. NO ADDITIONAL QUESTIONS OR CONCERNS AT THIS TIME.
[2024-11-29] MEDS: ketOROlac 15MG/ML VIAL (15MG/ML) IV PRN (15:09)
--- NOTE | 2024-11-29 19:20 | DS ---
DISCHARGE SUMMARY [ [Date of admission:11/28/24 Date of discharge: 11/30/24 Final diagnosis: Left Knee osteoarthritis Surgical procedures: Left total Knee arthroplasty on Summary of History and Physical: The patient is a 69 year-old with history of severe arthrosis to the left knee that has been present for several years and has been treated conservatively with no longer adequate response to treatment. The patient is being admitted for total knee arthroplasty. Past Medical History; Atypical chest pain.Multidrug-resistant hypertension.Hypothyroidism on Supplements.Hypertriglyceridemia.Prediabetes. GERD.OA.Obesity Surgical History: C- Sections x 3AppendectomyPartial HysterectomyLeft total knee arthroplasty Family History: Father: diagnosed with Diabetes mellitus without mention of complication, type II or unspecified type, not stated as uncontrolled, Unspecified essential hypertension, Unspecified heart diseaseMother: diagnosed with Diabetes mellitus without mention of complication, type II or unspecified type, not stated as uncontrolled, Unspecified essential hypertensionSister with history of MA and coronary artery disease in her 60s. Social History: The patient is , retired from [employer] services with the [employer]. She denies tobacco use, alcohol use or illicit drug use. Allergies: Codeine Sulfate Review of system: Negative on admission Hospital course: The patient was admitted and taken to the operating room for a total knee arthroplasty, procedure that went uneventful. Postoperatively the patient remained hemodynamically stable and afebrile. The patient received antibiotic and anticoagulation prophylaxis as per protocol. The patient was evaluated by physical therapy and started rehabilitation treatment with ambulation with the use of walker, weightbearing as tolerated, range of motion exercises and bed transfers. The patient was also evaluated by case management and arrangements were made for discharge. The patient tolerated diet well. On postop day #2 all the arrangements were completed. The dressing was changed and the wound was noted to be stable and the patient was dismissed. Condition on discharge: Good Disposition: The patient will be dismissed Home wit . Follow-up will be done at the office in 3 weeks. The patient is to continue with physical therapy and rehabilitation at home and be ambulatory with the use of a walker, weightbearing as tolerated. Continue taking pain medication as instructed as well as anticoagulation prophylaxis. Continue with home medications also as instructed and continue with pre admission diet.] TAMAR EDMOND MD] TAMAR EDMOND MD Nov 29, 2024 19:20
[2024-11-30] VITALS: BP 129/52; PULSE 67; RESP 17; TEMP 98.4
[2024-11-30 04:00] VITALS: BP 130/61; PULSE 76; RESP 16; TEMP 98.4
[2024-11-30 08:00] VITALS: BP 148/58; PULSE 78; RESP 18; TEMP 98.7; O2SAT 98
[2024-11-30 12:05] VITALS: BP 130/47; PULSE 70; RESP 20; TEMP 98.5
--- NOTE | 2024-11-30 15:52 | NUR ---
[facility] DISCHARGE PLANNING Called report to [facility] home health nurse Vicenta. Patient will be tentatively seen tomorrow by Gianna MAURICIO and Physical Therapy. [phone]
[2024-11-30] MEDS ORDERED: AEC81 PO ×2 (16:20)
[2024-11-30] MEDS ORDERED: HYDR-4060 PO ×2 (16:20)
--- NOTE | 2024-11-30 18:13 | NUR ---
DISCHARGE Patient states the prescribed medication caused hallucinations the last time she took, and would prefer tramadol for home medication pain control. Contacted Dr. Carbajal, he was in surgery. Contacted CHAPO Coon and she states she will send prescription to her preferred pharmacy in [facility] for tramadol. Patient provided with discharge instructions, including medications, exercise, home health, and follow up appointments. Patient verbalized understanding and all questions answered. Patient IV removed. Patient discharged home with all belongings and idania supplies.
[2024-12-01] MEDS ORDERED: BisaCODYL 10 MG SUPP.RECT RC PRN (17:00)
== END 2024-11-30 18:10 | disposition home health service (06) ==
LOC: DAH 11:43 → DAHIP 11:44 → 4DH 19:00
PROVIDERS: ADMIT Orthopaedic Surgery; ATTEND Orthopaedic Surgery
DX: M17.11 Unilateral primary osteoarthritis, right knee (principal); M23.8X1 Other internal derangements of right knee; M25.561 Pain in right knee; R26.89 Other abnormalities of gait and mobility; I12.9 Hypertensive chronic kidney disease with stage 1 through stage 4 chronic kidney disease, or unspecified chronic kidney disease; E11.22 Type 2 diabetes mellitus with diabetic chronic kidney disease; N18.9 Chronic kidney disease, unspecified; K21.9 Gastro-esophageal reflux disease without esophagitis; E03.9 Hypothyroidism, unspecified; E78.1 Pure hyperglyceridemia; Z16.24 Resistance to multiple antibiotics; Z79.899 Other long term (current) drug therapy; Z98.890 Other specified postprocedural states
CPT/HCPCS: 85025; 87086 ×2; 87186; 81001; 36415 ×2; 87641; 27447; 64447; 96365; 82948 ×8; 96366; 96375; 80048; 85027; 97161; 97116 ×4; 97530 ×6; 96376; G0378 ×44; A4663; J7120; J3010 ×3; J0690 ×4; J3490 ×3; J1100; J0330; J7030; J2003; J2250; J2704; J2405; J2710; J3370 ×2; A9272; A4649 ×3; A4930 ×2; C1713; C1776; A4215 ×2; A4223 ×2; A4213; A4222; A4221; A4216; J1885 ×2